=== PATIENT | female | born 1995 | race Two or more races ===

== ENCOUNTER 2018-08-14 01:46 | Emergency (ER) | payer MEDICAID, OTHER ==
[~2018-08-14] VITALS: Ht 157.5 cm; Wt 63.5 kg
[2018-08-14 02:02] VITALS: BP 98/64
== END 2018-08-14 06:15 | disposition left against medical advice (07) ==
LOC: ER 01:59
DX: K08.89 Other specified disorders of teeth and supporting structures (principal); Z53.21 Procedure and treatment not carried out due to patient leaving prior to being seen by health care provider